=== PATIENT | female | born 1945 | race Caucasian/White ===

== ENCOUNTER 2017-02-22 10:48 | Inpatient (IN) ==
[2017-02-22] MEDS ORDERED: ONDANSETRON 4 MG/2 ML VIAL IV STA (10:58)
[2017-02-22] MEDS ORDERED: HYDROmorphone 2 MG/1 ML VIAL IV STA (10:58)
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
--- NOTE | 2017-02-22 11:22 | EKG Report ---
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
[2017-02-22] MEDS ORDERED: ONDANSETRON 4 MG/2 ML VIAL ONE (11:26)
[2017-02-22] MEDS ORDERED: HYDROmorphone 2 MG/1 ML VIAL ONE (11:27)
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
[2017-02-22 12:38] LABS: Basophils # 0.1 10*3/uL (0.0-0.2); Basophils % 0.3 % (0.0-0.8); Eosinophils # 0.1 10*3/uL (0.0-0.87); Eosinophils % 0.5 % (0.00-10.9); Hematocrit 39.7 VOL% (35.7-47.0); Hemoglobin 13.5 GM/DL (12.0-16.0); Immature Granulocytes % 0.9 %; Immature Granulocytes Absolute 0.17 #; Lymphocytes # 1.6 10*3/uL (1.4-4.0); Mean Corpuscular Hemoglobin 32 PG (27-34); Mean Platelet Volume 10.3 FL (9.6-12.0); Monocytes % 5.5 % (1.7-12.7); Neutrophils % 83.8 % (38.7-73.9); Platelet Count 256 T/CUMM (130-400); Red Blood Count 4.27 MC/CUMM (3.8-5.5); Red Cell Distribution Width 12.6 % (9.3-17.3); White Blood Count 17.9 T/CUMM (4-12)
[2017-02-22 12:47] LABS: INR 1.1; PT Patient Result 11.2 SECS; Partial Thromboplastin Time 23.6 SECS (0-40)
[2017-02-22 12:51] LABS: Lactic Acid 1.3 MMOL/L (0.4-2.0)
[2017-02-22 12:53] LABS: Troponin I Only 0.033 NG/ML (0.00-0.045)
[2017-02-22 12:59] LABS: Alanine Aminotransferase 37 U/L (13-56); Albumin 3.5 G/DL (3.4-5.0); Alkaline Phosphatase 78 U/L (45-117); Amylase 86 U/L (25-115); Aspartate Amino Transferase 39 U/L (0-37); Blood Urea Nitrogen 25 MG/DL (7-18); Calcium 10.5 MG/DL (8.5-10.1); Glucose 136 MG/DL (74-106); Potassium 3.9 MMOL/L (3.5-5.1); Sodium 143 MMOL/L (136-145); Total Protein 6.8 G/DL (6.4-8.3)
[2017-02-22 13:03] LABS: Band Neutrophils 6 % (0-10); Hypochromasia 1+; Lymphocytes 9 % (20-55); Segmented Neutrophils 80 % (50-85); Total Cells Counted 100
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
[2017-02-22] MEDS ORDERED: ALUMINUM/MAGNES/SIMETH MAX STR 30 ML UDCUP PO PRN (14:09)
[2017-02-22] MEDS ORDERED: KETOROLAC 15 MG/1 ML VIAL IV SCH (14:09)
[2017-02-22] MEDS ORDERED: BISACODYL 5 MG TABLET PO PRN (14:09)
[2017-02-22] MEDS ORDERED: HYDROmorphone PCA 30 MG/30 ML SYRINGE IV SCH (14:09)
[2017-02-22] MEDS ORDERED: ACETAMINOPHEN 325 MG TABLET PO PRN (14:09)
[2017-02-22] MEDS: LACTATED RINGERS 1,000 ML IV SCH (15:15)
[2017-02-22] MEDS ORDERED: NALOXONE 0.4 MG/ML VIAL IV PRN (16:26)
--- NOTE | 2017-02-22 17:07 | Event Note ---
Patient reassessed at bedside Subjective: Patient has no additional complaints. No headache, changes in vision, although, localized weakness, chest pain, shortness of breath, wheeze or cough. She has demonstrated appropriate use of the incentive spirometer. Pain is currently adequately controlled. She is tolerating fluids and is looking forward to eating. No abdominal pain, neck pain, back pain, or extremity pain reported. Objective: Vitals are stable; heart rate in the 50s HEENT atraumatic. Pupils equal round reactive to light. No ecchymosis Neck: Passive and active range of motion of the C-spine is without tenderness. Chest: Chest wall tenderness is unchanged. No ecchymosis is present yet. No emphysema or palpation. Lungs: Clear to auscultation bilaterally Heart: Borderline bradycardiac; regular rhythm. Abdomen: No ecchymosis. Nontender throughout. Bowel sounds are present. Back: Nontender throughout the spinous processes and paraspinal muscles. No ecchymosis is noted. No flank pain. Extremities: Bilateral upper extremities and left lower extremity without evidence of trauma. Patient is full, pain-free range of motion. Right lower extremity with persistent abrasion of the right knee with mild increased edema and ecchymosis about the knee. Patient can perform straight leg raise. Ankle and hip are without tenderness. Patient has had no pain with pelvic rock or pelvic compression. AP: Patient is currently stable. By report, all needs are met. Continue with current plan of care.
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
[2017-02-22] MEDS: ONDANSETRON 4 MG/2 ML VIAL IV PRN (18:40)
[2017-02-22] MEDS: POTASSIUM CHLORIDE 20 MEQ TABLET PO SCH (21:19)
[2017-02-22] MEDS: PRAVASTATIN 40 MG TABLET PO SCH (21:19)
[2017-02-22] MEDS: MONTELUKAST 10 MG TABLET PO SCH (21:19)
[2017-02-23] MEDS: ONDANSETRON 4 MG/2 ML VIAL IV PRN ×2 (02:47→17:09)
[2017-02-23 04:41] LABS: Basophils % 0.2 % (0.0-0.8); Eosinophils # 0.1 10*3/uL (0.0-0.87); Eosinophils % 0.6 % (0.00-10.9); Hematocrit 34.1 VOL% (35.7-47.0); Hemoglobin 11.1 GM/DL (12.0-16.0); Immature Granulocytes % 0.5 %; Immature Granulocytes Absolute 0.04 #; Lymphocytes # 1.2 10*3/uL (1.4-4.0); Lymphocytes % 13.8 % (21.3-54.2); Mean Corpuscular HGB Conc 32.6 GM/DL (32-36); Mean Corpuscular Hemoglobin 31 PG (27-34); Mean Corpuscular Volume 94.5 FL (87-102); Mean Platelet Volume 10.4 FL (9.6-12.0); Monocytes # 0.7 10*3/uL (0.11-0.8); Monocytes % 8.2 % (1.7-12.7); Neutrophils # 6.7 10*3/uL (1.4-7.4); Neutrophils % 76.7 % (38.7-73.9); Platelet Count 218 T/CUMM (130-400); Red Blood Count 3.61 MC/CUMM (3.8-5.5); Red Cell Distribution Width 12.8 % (9.3-17.3); White Blood Count 8.8 T/CUMM (4-12)
[2017-02-23 05:18] LABS: Calcium 9.8 MG/DL (8.5-10.1); Magnesium 2.1 MG/DL (1.8-2.4); Osmolality,Calculated 285.4 MOS/KG (273-304); Potassium 4.7 MMOL/L (3.5-5.1)
--- NOTE | 2017-02-23 07:41 | EKG Report ---
Stationary ECG Study [facility] Test Date: 02/23/2017 7:41:56 AM Pat Name: HARI WILDE Department: Room: 342 Gender: F Online Services Manager: JENNA : 1945 Requested by: Morgan Gracia Order Number: [id number] Reading MD: RAFAL HAYES Intervals [place] Rate: 69 P: 51 SC: 182 QRS: -38 QRSD: 158 T: 136 QT: 422 QTc: 441 Interpretive Statements SINUS RHYTHM At 69 bpm LEFT BUNDLE BRANCH BLOCK Electronically Signed On 02-27-17 15:56:08 CDT by RAFAL HAYES [email or web address]
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
[2017-02-23] MEDS: LOSARTAN 50 MG TABLET PO SCH (11:35)
[2017-02-23] MEDS: PANTOPRAZOLE 40 MG TABLET PO SCH (11:36)
[2017-02-23] MEDS: FUROSEMIDE 40 MG TABLET PO SCH (11:36)
[2017-02-23] MEDS: CETIRIZINE 10 MG TABLET PO SCH (11:37)
[2017-02-23] MEDS: POTASSIUM CHLORIDE 20 MEQ TABLET PO SCH ×2 (11:38→20:46)
[2017-02-23] MEDS: CALCIUM (CARBONATE) 500 MG TABLET PO SCH (11:39)
[2017-02-23 12:20] LABS: Hematocrit 34.9 VOL% (35.7-47.0); Hemoglobin 11.4 GM/DL (12.0-16.0)
[2017-02-23] MEDS: SODIUM CHLORIDE 0.9% 1,000 ML IV SCH (17:06)
[2017-02-23] MEDS: LACTATED RINGERS 1,000 ML IV SCH (17:06)
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
[2017-02-23] MEDS: PRAVASTATIN 40 MG TABLET PO SCH (20:45)
[2017-02-23] MEDS: MONTELUKAST 10 MG TABLET PO SCH (20:45)
[2017-02-24] MEDS: SODIUM CHLORIDE 0.9% 1,000 ML IV SCH (00:27)
[2017-02-24 07:36] LABS: Basophils % 0.3 % (0.0-0.8); Eosinophils # 0.1 10*3/uL (0.0-0.87); Eosinophils % 1.5 % (0.00-10.9); Hematocrit 28.7 VOL% (35.7-47.0); Hemoglobin 9.5 GM/DL (12.0-16.0); Immature Granulocytes % 0.4 %; Immature Granulocytes Absolute 0.03 #; Lymphocytes # 1.3 10*3/uL (1.4-4.0); Lymphocytes % 19.2 % (21.3-54.2); Mean Corpuscular HGB Conc 33.1 GM/DL (32-36); Mean Corpuscular Hemoglobin 32 PG (27-34); Mean Corpuscular Volume 96.6 FL (87-102); Mean Platelet Volume 10.6 FL (9.6-12.0); Monocytes # 0.6 10*3/uL (0.11-0.8); Neutrophils # 4.9 10*3/uL (1.4-7.4); Neutrophils % 70.6 % (38.7-73.9); Platelet Count 166 T/CUMM (130-400); Red Blood Count 2.97 MC/CUMM (3.8-5.5); Red Cell Distribution Width 12.9 % (9.3-17.3); White Blood Count 6.9 T/CUMM (4-12)
[2017-02-24 08:04] LABS: Calcium 9.4 MG/DL (8.5-10.1); Magnesium 2.1 MG/DL (1.8-2.4); Osmolality,Calculated 280.4 MOS/KG (273-304); Potassium 4.6 MMOL/L (3.5-5.1)
[2017-02-24] MEDS: FUROSEMIDE 40 MG TABLET PO SCH (09:11)
[2017-02-24] MEDS: LOSARTAN 50 MG TABLET PO SCH (09:11)
[2017-02-24] MEDS: POTASSIUM CHLORIDE 20 MEQ TABLET PO SCH ×2 (09:11→20:45)
[2017-02-24] MEDS: CETIRIZINE 10 MG TABLET PO SCH (09:12)
[2017-02-24] MEDS: CALCIUM (CARBONATE) 500 MG TABLET PO SCH (09:12)
[2017-02-24] MEDS: PANTOPRAZOLE 40 MG TABLET PO SCH (09:12)
[2017-02-24] MEDS: LACTATED RINGERS 1,000 ML IV SCH (14:12)
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
[2017-02-24] MEDS: MORPHINE 2 MG/1 ML SYRINGE IV PRN ×2 (15:18→20:41)
[2017-02-24] MEDS: PRAVASTATIN 40 MG TABLET PO SCH (20:45)
[2017-02-24] MEDS: MONTELUKAST 10 MG TABLET PO SCH (20:45)
[2017-02-25] MEDS: MORPHINE 2 MG/1 ML SYRINGE IV PRN (06:30)
[2017-02-25 06:58] LABS: Basophils % 0.5 % (0.0-0.8); Eosinophils # 0.2 10*3/uL (0.0-0.87); Eosinophils % 2.6 % (0.00-10.9); Hematocrit 28.6 VOL% (35.7-47.0); Hemoglobin 9.5 GM/DL (12.0-16.0); Immature Granulocytes % 0.5 %; Immature Granulocytes Absolute 0.03 #; Lymphocytes # 1.5 10*3/uL (1.4-4.0); Lymphocytes % 22.7 % (21.3-54.2); Mean Corpuscular HGB Conc 33.2 GM/DL (32-36); Mean Corpuscular Hemoglobin 31 PG (27-34); Mean Corpuscular Volume 93.8 FL (87-102); Mean Platelet Volume 10.7 FL (9.6-12.0); Monocytes # 0.6 10*3/uL (0.11-0.8); Monocytes % 9.3 % (1.7-12.7); Neutrophils # 4.2 10*3/uL (1.4-7.4); Neutrophils % 64.4 % (38.7-73.9); Platelet Count 179 T/CUMM (130-400); Red Blood Count 3.05 MC/CUMM (3.8-5.5); Red Cell Distribution Width 12.8 % (9.3-17.3); White Blood Count 6.6 T/CUMM (4-12)
[2017-02-25] MEDS: ONDANSETRON 4 MG/2 ML VIAL IV PRN (07:19)
[2017-02-25 07:27] LABS: Calcium 9.4 MG/DL (8.5-10.1); Osmolality,Calculated 282.3 MOS/KG (273-304); Potassium 4.1 MMOL/L (3.5-5.1)
[2017-02-25 07:29] LABS: Calcium 9.6 MG/DL (8.5-10.1); Magnesium 2.2 MG/DL (1.8-2.4); Osmolality,Calculated 282.3 MOS/KG (273-304); Potassium 4.1 MMOL/L (3.5-5.1)
[2017-02-25] MEDS: LOSARTAN 50 MG TABLET PO SCH (10:40)
[2017-02-25] MEDS: CETIRIZINE 10 MG TABLET PO SCH (10:40)
[2017-02-25] MEDS: POTASSIUM CHLORIDE 20 MEQ TABLET PO SCH (10:41)
[2017-02-25] MEDS: PANTOPRAZOLE 40 MG TABLET PO SCH (10:41)
[2017-02-25] MEDS: FUROSEMIDE 40 MG TABLET PO SCH (10:52)
[2017-02-25] MEDS: CALCIUM (CARBONATE) 500 MG TABLET PO SCH (10:52)
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
[2017-02-25 16:26] VITALS: BP 158/62
== END 2017-02-25 18:00 | disposition home health service (06) | DRG 184 ==
LOC: N.ED 10:48 → N.EDINP 12:22 → N.3E 12:57
PROVIDERS: ADMIT Surgery; ATTEND Surgery